=== PATIENT | female | born 1975 | race Hispanic/Latino ===

== ENCOUNTER 2016-12-31 16:19 | Inpatient (IN) | payer BC ==
[~2016-12-31] VITALS: Ht 157.5 cm; Wt 90.0 kg
[~2016-12-31 16:19] MED LIST: CIPROFLOXACIN250 MG PO; PRENATAL CAPLE1 EACH PO
--- NOTE | 2017-01-02 13:20 | NUR ---
01/02/17 1320 Rea Lam 125 PT ARRIVED TO ROOM AWAKE, RESP EVEN AND UNLABORED. DENINES PAIN AND NAUSEA.
--- NOTE | 2017-01-03 09:36 | PR ---
[facility] [address] [facility] [place], [place] [address] Signed PP Progress Notes Datetime Report Generated by CPN: 01/03/2017 09:36 SUBJECTIVE: [id number] Pain: Within normal limits Nausea/Vomiting: Denies Flatus: Yes Vital Signs: [id number] Vital Signs: Reviewed; Within Normal Limits EXAM: [id number] Cardiovascular: Normal Respiratory: Normal Abdomen/Uterus: Abnormal Lochia: Normal Vulva/Perineum: Not Done Breasts: Not Done CVA Tenderness: Not Done Extremities: Normal Incision: Normal Progress: Normal Exam Comments: Abdomen with active BS. Fundus firm, NT @ U-1. UO low H/H 11.5/32.1, WBC 9.6, plat 176k IMPRESSION/PLAN/PROCEDURES: [id number] Impression: Normal progression Other Impression: Poor urine output Other Plans: ambulate, shower, push po fluids Progress Notes: Doing OK other than UO. Signing Physician: Brenda Louise MD CC: *Electronically Signed* 01/03/17 0936 BRENDA LOUISE MD PATIENT NAME: SHAWN ALVES PROGRESS NOTE DATE OF : 77 PHYSICIAN: BRENDA LOUISE MD RPT #: [id number] REPORT IS CONFIDENTIAL AND NOT TO BE RELEASED WITHOUT AUTHORIZATION
--- NOTE | 2017-01-04 11:43 | PR ---
[facility] [address] [facility] [place], [place] [address] Signed PP Progress Notes Datetime Report Generated by CPN: 01/04/2017 11:43 SUBJECTIVE: [id number] Pain: Within normal limits Nausea/Vomiting: Denies Flatus: Yes Bowel Movement: No Vital Signs: [id number] Vital Signs: Reviewed; Within Normal Limits EXAM: [id number] Cardiovascular: Normal Respiratory: Normal Abdomen/Uterus: Normal Lochia: Normal Vulva/Perineum: Normal Breasts: Normal CVA Tenderness: Normal Extremities: Normal Incision: Normal Progress: Normal Exam Comments: Abdomen with active BS. Fundus firm, NT @ U-1. UO low H/H 11.5/32.1, WBC 9.6, plat 176k IMPRESSION/PLAN/PROCEDURES: [id number] Impression: Normal progression Other Impression: Poor urine output Plan: Remove joan; Discharge Other Plans: ambulate, shower, push po fluids Procedures: None Progress Notes: patient doing well with . Signing Physician: Catherine Valero MD CC: *Electronically Signed* 01/04/17 1143 CATHERINE VALERO MD PATIENT NAME: SHAWN ALVES PROGRESS NOTE DATE OF : 77 PHYSICIAN: CATHERINE VALERO MD RPT #: [id number] REPORT IS CONFIDENTIAL AND NOT TO BE RELEASED WITHOUT AUTHORIZATION
--- NOTE | 2017-01-19 08:41 | OR ---
[facility] [address] [place], [place] [address] Signed DATE OF OPERATION: 01/02/2017 SURGEON: Alison Louise MD PAINTER FOREMAN: Dr. Valero. PREOPERATIVE DIAGNOSES: Term , advanced maternal age, gestational diabetes, oligohydramnios, failure to dilate. POSTOPERATIVE DIAGNOSES: Term , advanced maternal age, gestational diabetes, oligohydramnios, failure to dilate, delivered. PROCEDURE: Primary section with low segment transverse uterine incision. ANESTHESIA: Spinal. ESTIMATED BLOOD LOSS: 650 mL. DRAINS: Chau catheter. INDICATIONS AND FINDINGS: The patient is a 41-year-old female, 2, para 0, SAB 1, who was admitted for induction at 39 and 3/7th weeks for term with oligohydramnios complicated by advanced maternal age. She underwent 6 doses of Cytotec, which changed her cervix from closed to fingertip. She then underwent a Cook balloon for 12 hours, which produce no cervical change. She was then begun on IV Pitocin drip again with no cervical change. At that point, it was felt that this was a failed induction and that she needed to proceed with section. She was consented and taken to the operating room where she was delivered a little boy from the ROT position via lower segment transverse uterine incision with Apgars of 8 and 9 and weight of 8 pounds and 1 ounce. There was meconium-stained fluid on entering the uterus. The baby's head was floating above the pelvic brim. The uterus, tubes, ovaries, and placenta, otherwise, appeared normal. She had some initial atony, which responded to IV Pitocin as well as IM Methergine. DESCRIPTION OF PROCEDURE: The patient was prepped and draped in the supine position. A Pfannenstiel skin incision was made and carried down through the fascia. The incision was extended laterally. The inferior and superior fascial flaps were then created. The muscles were bluntly divided and the peritoneum opened bluntly and the incision extended superiorly and inferiorly. Electronically Signed By: ALISON LOUISE MD 01/19/17 0841 PATIENT NAME: SHAWN ALVES OPERATIVE REPORT DATE OF : 77 PHYSICIAN: ALISON LOUISE MD REPORT #: [id number] REPORT IS CONFIDENTIAL AND NOT TO BE RELEASED WITHOUT AUTHORIZATION [facility] [address] [place] [address] Signed The Serjio retractor was placed. The uterine wall was scored and entered at the upper aspect of the peritoneal reflection. The baby was delivered with the above findings and handed out to the pediatric staff in attendance. The placenta was removed manually. The uterus explored with a lap tape showing no remaining fragments. The edges of the incision were identified and the uterus was closed in 2 layers using 0 Monocryl. The first layer was a running locking stitch and a second was then vertical imbricating stitch. Cautery was used to control bleeding points along the incision. The abdomen was then copiously irrigated and inspected and seen to be hemostatic. The retractor was removed and the peritoneum identified. An ACell graft was then laid over the uterine incision to aid in healing. The peritoneum was then closed with a running suture of 3-0 Vicryl. The muscles were brought together with interrupted sutures of 0 Vicryl. Bleeding points were controlled with cautery. This layer was then irrigated and inspected and found to be hemostatic as well. ACell powder was sprinkled over the muscles to aid in healing. The fascia was then closed from each angle to the midline with a running suture of 0 Vicryl. The subcutaneous tissue was irrigated and bleeding points controlled. The subcutaneous tissue was reapproximated with interrupted sutures of 3-0 Vicryl. The skin was closed with joan. All sponge and needle counts were correct. The patient tolerated the procedure well and was taken to the recovery room in good condition. Alison Louise MD PJW/MODL /[id number] cc: Catherine Valero MD Electronically Signed By: ALISON LOUISE MD 01/19/17 0841 PATIENT NAME: SHAWN ALVES OPERATIVE REPORT DATE OF : 77 PHYSICIAN: ALISON LOUISE MD REPORT #: [id number] REPORT IS CONFIDENTIAL AND NOT TO BE RELEASED WITHOUT AUTHORIZATION
== END 2017-01-04 15:10 | disposition home or self-care (01) | DRG 765 ==
LOC: FBC 01-01 00:10
PROVIDERS: ADMIT Obstetrics & Gynecology
PROC: 0UVC7ZZ Restriction of Cervix, Via Natural or Artificial Opening (ICD-10-PCS; 2017-01-02)
PROC: 10D00Z1 Extraction of Products of Conception, Low, Open Approach (ICD-10-PCS; principal; 2017-01-02 12:00)
DX: O61.0 Failed medical induction of labor (principal); O41.03X0 Oligohydramnios, third trimester, not applicable or unspecified; Z3A.39 39 weeks gestation of pregnancy; Z37.0 Single live birth; O24.429 Gestational diabetes mellitus in childbirth, unspecified control
CPT/HCPCS: 01961; 36415; 85027; C1763; J0690; J1170; J1644; J2274; J2405; J2550; J2590; J2765; J3010

== ENCOUNTER 2017-11-03 06:55 | Day surgery (SDC) | payer BC ==
[~2017-11-03] VITALS: Ht 154.9 cm; Wt 77.1 kg
[2017-11-03] MEDS ORDERED: IBUPROFEN600 MG PO (08:55)
[2017-11-03] MEDS ORDERED: OXYCODON-ACETA1 EAC2 PO (08:56)
[2017-11-03] MEDS ORDERED: MAPAP325 MG PO (08:56)
--- NOTE | 2017-11-03 09:11 | NUR ---
[facility]17 [facility] WITH ORAL AIRWAY IN PLACE. 0856 PT REACTIVE. ORAL AIRWAY REMOVED. NO C/O'S.
--- NOTE | 2017-11-03 09:47 | NUR ---
PATIENT RETURNED FROM SURGERY, RATES ABD PAIN 5/10, MILD NAUSEA. X4 SCOPE SITES INTACT WITH STERI-STRIPS AND SMALL AMOUNT OF DRAINAGE. WARM BLANKET GIVEN. PLAN TO GIVE IV NAUSEA MED, PER PATIENT REQUEST.
--- NOTE | 2017-11-03 10:56 | NUR ---
PT IS ASLEEP WHEN ENTERING THE ROOM. IS AT BEDSIDE. CALL LIGHT WITHIN REACH. TOLERATED ICE CHIPS, SIPS OF WATER, AND JELLO. SHE ASKS FOR PAIN PILL. NO OTHER C/O'S AT THIS TIME. WILL REASSESS WITHIN THE HOUR.
--- NOTE | 2017-11-03 11:54 | NUR ---
PT INDICATES THAT SHE WOULD LIKE TO GO HOME. SHE IS EDUCATED ON DC CRITERIA, THE ONLY CRITERIA LEFT TO MEET IS URINATING. SHE IS HELPED UP OOB TO THE BATHROOM WHERE SHE IS ABLE TO VOID 125ML OF DARK YELLOW URINE. SHE IS EDUCATED ON HOW BEST TO DRESS HERSELF AND TO OPEN HER CURTAIN WHEN SHE IS READY SO DC INSTRUCTIONS CAN BE GIVEN.
--- NOTE | 2017-11-03 12:12 | NUR ---
PT HAS MET DC CRITERIA. DC INSTRUCTIONS ARE GIVEN. SHE IS TAKEN TO VEHICLE IN WHEELCHAIR.
--- NOTE | 2017-11-03 20:24 | OR ---
[facility] [address] [place], [place] [address] Signed DATE OF OPERATION: 11/03/2017 SURGEON: Tammi Interiano MD PREOPERATIVE DIAGNOSIS: Symptomatic gallstones. POSTOPERATIVE DIAGNOSIS: Symptomatic gallstones. PROCEDURES PERFORMED: 1. Laparoscopic cholecystectomy with intraoperative cholangiogram. 2. Surgeon-directed fluoroscopy. ANESTHESIA: General endotracheal. Jean German CRNA and local 18 mL of 0.25% Marcaine with epinephrine. INDICATION: This 42-year-old white woman is a patient of Dr. Louise. The patient has had biliary colic type symptoms with right upper abdominal epigastric pain following meals. Of note, she underwent childbirth by in December 2016, her first child after quite a long time of attempting successful gestation. She was noted to have gallstones detected on OB ultrasound performed by Dr. Louise on October 12, 2017 in her office. Additionally, she has a submucosal fibroid 4 cm in size, but also incidental findings of two small gallstones. The gallstones were considered to be symptomatic, though the fibroids of the uterus are not. She was admitted at this time to undergo cholecystectomy. Understands the risks of bleeding, infection, bile duct injury, need for open procedure, and of course failure to cure her symptoms. Understands and she wished to proceed. FINDINGS: The gallbladder was relatively flaccid and chronically inflamed. There was no sign of acute inflammation. The liver had hepatic steatosis with a blunted liver edge. The appendix was visualized as normal. The uterus was not seen. The right colon and stomach appeared normal. Intraoperative cholangiogram was normal. The gallbladder once excised showed at least one gallstone. DESCRIPTION OF PROCEDURE: Electronically Signed By: TAMMI INTERIANO MD 11/03/174 PATIENT NAME: SHAWN LAGUNA OPERATIVE REPORT DATE OF : 77 REPORT #: [id number] PHYSICIAN: TAMMI INTERIANO MD PCP: RANI SALAZAR DC REPORT IS CONFIDENTIAL AND NOT TO BE RELEASED WITHOUT AUTHORIZATION [facility] [address] [place], [place] [address] Signed The patient was brought to the operating room, given a general endotracheal anesthetic. Preoperative antibiotic Ancef was given. Sequential compression device stockings used and heparin subcutaneously administered. The abdomen was prepared with a chlorhexidine solution and draped sterilely. An infraumbilical incision was made and using an open Tootie cannula technique. Pneumoperitoneum was achieved to a level of 14 mmHg of carbon dioxide gas. Intraabdominal inspection was undertaken showing no sign of ascites or carcinomatosis. The liver had mild fatty infiltration. The gallbladder was obscured from view at that point. Three additional trocars were placed in usual configuration in the subxiphoid, right midclavicular, and right anterior axillary line. The gallbladder was elevated cephalad and retracted laterally and using meticulous care blunt and electrocautery dissection was undertaken, dissecting free the cystic duct. A small rent was made in the gallbladder allowing for egress of clear bile, it was quickly suctioned free. Ultimately, the cystic duct was well defined from surrounding tissue and a clip was applied across gallbladder cystic duct junction and a transverse choledochotomy made in the cystic duct. Egress of clear bile was noted from the cystic duct. Using an Mccormick type cholangiocatheter intraoperative cholangiography was undertaken showing free flow of contrast in biliary tree. Prompt emptying into the duodenum and good retrograde filling. The catheter was removed noting the cholangiogram was entirely normal. The cystic duct was triply clipped and divided and the gallbladder was then dissected free in a retrograde fashion using electrocautery. The gallbladder was placed in an endobag and extracted through the epigastric port opened on the back table and found to have at least one gallstone and cholesterolosis of mucosa. Irrigation was undertaken in subhepatic space. Bilious fluid that had spilled was suctioned free. There was no sign of stone or other remaining debris. Gentle manipulation of the right colon allowed for visualization of the appendix, which was normal. The uterus was not visualized. The trocars were then removed under direct visualization showing no sign of bleeding. The infraumbilical fascial incision was reapproximated with interrupted 0 Vicryl suture. All wounds were copiously irrigated with saline solution and skin was closed with interrupted 3-0 Vicryl. Steri-Strips were applied. The patient was ultimately extubated and transferred to recovery room in good condition having suffered no complications. Sponge, needle, and instrument counts were reported as correct x3. Tammi Interiano MD Electronically Signed By: TAMMI INTERIANO MD 11/03/172023 PATIENT NAME: SHAWN LAGUNA OPERATIVE REPORT DATE OF : 77 REPORT #: [id number] PHYSICIAN: TAMMI INTERIANO MD PCP: RANI SALAZAR DC REPORT IS CONFIDENTIAL AND NOT TO BE RELEASED WITHOUT AUTHORIZATION [address] [address] Signed /MODL /[id number] cc: KYA De Dios MD Copies: RANI SALAZAR DC, PATRICIA J MD ~ Electronically Signed By: TAMMI INTERIANO MD 11/03/172023 PATIENT NAME: ALVES JACKSONSHAWN OPERATIVE REPORT DATE OF : 77 REPORT #: [id number] PHYSICIAN: TAMMI INTERIANO MD PCP: RANI SALAZAR DC REPORT IS CONFIDENTIAL AND NOT TO BE RELEASED WITHOUT AUTHORIZATION
== END 2017-11-03 12:10 | disposition home or self-care (01) ==
LOC: DS 06:55 → OPS 06:55
PROVIDERS: Surgery
PROC: BF13YZZ Fluoroscopy of Gallbladder and Bile Ducts using Other Contrast (ICD-10-PCS; 2017-11-03)
PROC: 0FT44ZZ Resection of Gallbladder, Percutaneous Endoscopic Approach (ICD-10-PCS; principal; 2017-11-03 06:45)
DX: K80.10 Calculus of gallbladder with chronic cholecystitis without obstruction (principal); K21.9 Gastro-esophageal reflux disease without esophagitis
CPT/HCPCS: 00790; 74300; J0690; J1100; J1644; J1885; J2250; J2405; J2704; J2765; J3010; J7120; Q9967

== ENCOUNTER → 2019-06-30 | Emergency (ER) | payer SELFPAY ==
[~2019-06-30] VITALS: Ht 154.9 cm; Wt 77.1 kg
[~2019-06-30] MED LIST changes: +IBUPROFEN600 MG PO; +MAPAP325 MG PO; +METHYLPREDNISOLO4 M1 PO; +OXYCODON-ACETA1 EAC2 PO
--- OUTSIDE RECORDS SUMMARY | ~2019-06-30 | XMS | Encounter Summary ---
Demographics + + + | Address | [address] | | | [place] [address] | + + + | Home Phone | | + + + | Preferred Language | Unknown | + + + | Marital Status | | + + + | Hinduism Affiliation | 1041 | + + + | Race | Unknown | + + + | Ethnic Group | Unknown | + + + Author + + + | Author | [facility] | | | and [place] | + + + | Organization | [facility] | | | and [place] | + + + | Address | Unknown | + + + | Phone | Unavailable | + + + Care Team Providers + +------+ + | Care Chemistry Quality Control Analyst Name | Role | Phone | + +------+ + PCP | Unavailable | + +------+ + Encounter Details +--------+ + + + + | Date | Type | Department | Care Team | Description | +--------+ + + + + | 07/18/ | Emergency | LOCATED WITHIN [facility] | Grupo De Souza MD | Threatened | | 2016 | | MEDICAL CENTER | [address] | miscarriage; Vaginal | | | | EMERGENCY CENTER | [place] [address] | spotting | | | | [address] | [phone] | | | | | [place], [place] | | | | | | [address] | | | | | | [phone] | | | +--------+ + + + + Social History + +-------+ +--------+------+ | Tobacco Use | Types | Packs/Day | Years | Date | | | | | Used | | + +-------+ +--------+------+ | Never Assessed | | | | | + +-------+ +--------+------+ + + + | Sex Assigned at | Date Recorded | | | | + + + | Not on file | | + + + + + + + | Job Start Date | Occupation | Industry | + + + + | Not on file | Not on file | Not on file | + + + + + + + + | Travel History | Travel Start | Travel End | + + + + + + | No recent travel history available. | + + documented as of this encounter Plan of Treatment Not on filedocumented as of this encounter Procedures + +--------+ + + + | Procedure Name | Priori | Date/Time | Associated Diagnosis | Comments | | | ty | | | | + +--------+ + + + | US OB TRANSVAGINAL | Routin | 07/19/2015 | | Results for this | | | e | 4:22 PM | | procedure are in the | | | | PDT | | results section. | + +--------+ + + + | CULTURE, URINE | STAT | 07/19/2015 | | Results for this | | | | 3:59 PM | | procedure are in the | | | | PDT | | results section. | + +--------+ + + + | URINALYSIS, REFLEX | Routin | 07/19/2015 | | Results for this | | MICROSCOPIC AND/OR | e | 3:10 PM | | procedure are in the | | CULTURE | | PDT | | results section. | + +--------+ + + + | HCG, SERUM, QUANT | Routin | 07/19/2015 | | Results for this | | | e | 3:10 PM | | procedure are in the | | | | PDT | | results section. | + +--------+ + + + documented in this encounter Results US OB Transvaginal (07/19/2015 4:22 PM PDT) + + | Specimen | + + | | + + + + + | Impressions | Performed At | + + + | 1. Gestational sac within the endometrial cavity without to | | | pole or yolk sac. Estimated gestational age is 10 weeks 6 days. | | | Short-term follow-up ultrasound in 2 weeks would be recommended. 2. | | | Mild free fluid within the pelvis. 3. A 1.5 cm structure adjacent | | | to the left ovary abutting the cervix. This may represent an excluded | | | fibroid or possible displaced right ovary. The right ovary is not | | | visualized. Soft tissue mass is felt less likely. 4. Mild amount of | | | free fluid within the pelvis with internal debris/hemorrhage. | | | | | + + + + + + | Narrative | Performed At | + + + | XIOMY ALVES US OB ENDOVAGINAL HISTORY: Vaginal bleeding | | | and cramping TECHNIQUE: Endovaginal sonographic evaluation the | | | pelvis. COMPARISON: None. FINDINGS: The uterus is anteverted | | | measuring 7.9 x 4.6 x 4.7 cm. Gestational sac seen within the | | | endometrial cavity measuring 15 x 5 x 7 mm consistent with 10 weeks 6 | | | days. No pole or yolk sac visualized. The right ovary is not | | | visualized. Left ovary measures 2.3 x 2.7 x 1.4 cm. Mild free fluid | | | within the pelvis with internal debris. Echogenic structure adjacent | | | to the left ovary adjacent to the cervix measuring 2.7 x 2.2 x 2.6 cm. | | | Mild internal color flow. | | + + + + + | Procedure Note | + + | Donny, Rad Conversion - 09/30/2018 6:31 PM PDT XIOMY GUADARRAMA OB ENDOVAGINAL | | HISTORY:Vaginal bleeding and cramping TECHNIQUE:Endovaginal sonographic evaluation the | | pelvis. COMPARISON:None. FINDINGS:The uterus is anteverted measuring 7.9 x 4.6 x 4.7 cm. | | Gestational sac seen within the endometrial cavity measuring 15 x 5 x 7 mm consistent | | with 10 weeks 6 days. No pole or yolk sac visualized. The right ovary is not | | visualized. Left ovary measures 2.3 x 2.7 x 1.4 cm. Mild free fluid within the pelvis | | with internal debris. Echogenic structure adjacent to the left ovary adjacent to the | | cervix measuring 2.7 x 2.2 x 2.6 cm. Mild internal color flow. IMPRESSION: 1. | | Gestational sac within the endometrial cavity without to pole or yolk sac. | | Estimated gestational age is 10 weeks 6 days. Short-term follow-up ultrasound in 2 weeks | | would be recommended.2. Mild free fluid within the pelvis.3. A 1.5 cm structure | | adjacent to the left ovary abutting the cervix. This may represent an excluded fibroid | | or possible displaced right ovary. The right ovary is not visualized. Soft tissue mass | | is felt less likely.4. Mild amount of free fluid within the pelvis with internal | | debris/hemorrhage. | | | |IMPRESSION: | |1. Gestational sac within the endometrial cavity without to pole or yolk sac. Estima sera gestational age is 10 weeks 6 days. Short-term follow-up ultrasound in 2 weeks would be recommended. | |2. Mild free fluid within the pelvis. | |3. A 1.5 cm structure adjacent to the left ovary abutting the cervix. This may represent a n excluded fibroid or possible displaced right ovary. The right ovary is not visualized. Sof t tissue mass is felt less likely. | |4. Mild amount of free fluid within the pelvis with internal debris/hemorrhage. | | | | | + + Culture, Urine (07/19/2015 3:59 PM PDT) + + | Specimen | + + | | + + + + + | Narrative | Performed At | + + + | Specimen Description CLEAN CATCH URINE CULTURE | EXTERNAL LAB | | <10,000 CFU/ML | | | MIXED GRAM POSITIVE OLGA | | | NO FURTHER WORKUP | | | Testing performed | | | at [facility], [address] [place] [address] | | + + + + +---------+ + + | Performing | Address | City/State/Zipcode | Phone Number | | Organization | | | | + +---------+ + + | EXTERNAL LAB | | | | + +---------+ + + Urinalysis, Reflex Microscopic and/or Culture (07/19/2015 3:10 PM PDT) + + + + + + | Component | Value | Ref Range | Performed | Pathologist | | | | | At | Signature | + + + + + + | Color | YELLOWComment: Testing | | EXTERNAL | | | | performed at [facility];[address] | | LAB | | | | [address];[place] | | | | | | [address] | | | | + + + + + + | Clarity | CLEARComment: Testing | | EXTERNAL | | | | performed at [facility];[address] | | LAB | | | | [address];[place] | | | | | | [address] | | | | + + + + + + | Specific | 1.010Comment: Testing | 1.002 - 1.030 | EXTERNAL | | | [place], | performed at [facility];[address] | | LAB | | | Urine [address];[place] | | | | | | [address] | | | | + + + + + + | Leukocyte | SMALL (A)Comment: | | EXTERNAL | | | Esterase, | Testing performed at | | LAB | | | Urine | [facility];[address] | [address];[place] [address] | | | | + + + + + + | Nitrite, | NEGATIVEComment: Testing | | EXTERNAL | | | Urine | performed at [facility];[address] | | LAB | | | | [address] | | | | | | [address] | | | | + + + + + + | Urobilinoge | NORMALComment: Testing | mg/dL | EXTERNAL | | | n, Urine | performed at [facility];[address] | | LAB | | | | [address] | | | | | | [address] | | | | + + + + + + | Protein, | 30 (A)Comment: Testing | mg/dL | EXTERNAL | | | Urine | performed at [facility];[address] | | LAB | | | | [address] | | | | | | [address] | | | | + + + + + + | pH, Urine | 7.0Comment: Testing | 5.0 - 8.0 | EXTERNAL | | | | performed at [facility];[address] | | LAB | | | | [address] | | | | | | [address] | | | | + + + + + + | Blood, | LARGE (A)Comment: | | EXTERNAL | | | Urine | Testing performed at | | LAB | | | | [facility];[address];[place] [address] | | | | + + + + + + | Ketones | NEGATIVEComment: Testing | mg/dL | EXTERNAL | | | | performed at [facility];[address] | | LAB | | | | [address] | | | | | | [address] | | | | + + + + + + | Bilirubin, | NEGATIVEComment: Testing | | EXTERNAL | | | Urine | performed at [facility];[address] | | LAB | | | | [address] | | | | | | [address] | | | | + + + + + + | Glucose, | NEGATIVEComment: Testing | mg/dL | EXTERNAL | | | Urine | performed at [facility];[address] | | LAB | | | | [address] | | | | | | [address] | | | | + + + + + + | WBC, UA | 6-10Comment: Testing | 0 - 5 /hpf | EXTERNAL | | | | performed at [facility];[address] | | LAB | | | | [address] | | | | | | [address] | | | | + + + + + + | RBC, UA | 16-25Comment: Testing | 0 - 5 /hpf | EXTERNAL | | | | performed at [facility];[address] | | LAB | | | | [address] | | | | | | [address] | | | | + + + + + + | Bacteria, | 1+ (A)Comment: Testing | | EXTERNAL | | | UA | performed at [facility];[address] | | LAB | | | | [address] | | | | | | [address] | | | | + + + + + + | Epithelial | 50-100Comment: Testing | /lpf | EXTERNAL | | | Cells | performed at [facility];[address] | | LAB | | | | [address] | | | | | | [address] | | | | + + + + + + | Mucus, | 1+Comment: Testing | | EXTERNAL | | | Urine | performed at [facility];[address] | | LAB | | | | [address];[place] | | | | | | [address] | | | | + + + + + + + + | Specimen | + + | | + + + +---------+ + + | Performing | Address | City/State/Zipcode | Phone Number | | Organization | | | | + +---------+ + + | EXTERNAL LAB | | | | + +---------+ + + HCG, Serum, Quant (07/19/2015 3:10 PM PDT) + + + + + + | Component | Value | Ref Range | Performed | Pathologist | | | | | At | Signature | + + + + + + | hCG Quant, | 6,934 (H)Comment: | mIU/mL | EXTERNAL | | | Serum | APPROX GESTATIONAL | | LAB | | | | AGE..APPROX HCG RANGE | | | | | | 0.2 - 1 WEEK . . . . . 5 | | | | | | - 501 - 2 WEEKS . . . . | | | | | | . 50 - 5002 - 3 WEEKS . | | | | | | . . . 100 - 62516 - 4 | | | | | | WEEKS . . . . 500 - | | | | | | 295005 - 5 WEEKS . . . . | | | | | | 1000 - 255811 - 6 WEEKS | | | | | | . . . [address] - 6748094 | | | | | | - 8 WEEKS . . . [address]77 | | | | | | - [id number] - 3 MONTHS . | | | | | | . . 45[address] - 127911 | | | | | | Testing performed at | | | | | | [facility] | | | | | | [address];[place] [address] | | | | + + + + + + + + | Specimen | + + | Blood specimen | | (specimen) | + + + +---------+ + + | Performing | Address | City/State/Zipcode | Phone Number | | Organization | | | | + +---------+ + + | EXTERNAL LAB | | | | + +---------+ + + documented in this encounter Visit Diagnoses + + | Diagnosis | + + | Threatened miscarriage Threatened , unspecified as to episode of care | + + | Vaginal spotting Other specified noninflammatory disorder of vagina | + + documented in this encounter"
--- OUTSIDE RECORDS SUMMARY | ~2019-06-30 | XMS | Clinical Summary ---
Demographics + + + | Address | [address] | | | [place] [address] | + + + | Home Phone | | + + + | Preferred Language | Unknown | + + + | Marital Status | | + + + | Samaritan Affiliation | 1041 | + + + | Race | Unknown | + + + | Ethnic Group | Unknown | + + + Author + + + | Author | [facility] (Historical as of | | | 10-02-18) | + + + | Organization | [facility] (Historical as of | | | 10-02-18) | + + + | Address | Unknown | + + + | Phone | Unavailable | + + + Support + + + + + | Name | Relationship | Address | Phone | + + + + + | Narciso,Varghese | ECON | Unknown | | + + + + + | Carla Alves | ECON | Unknown | | + + + + + | Liborio Tomlin | ECON | [address] | | | | | [place] | | | | | [address] | | + + + + + | Aliya Alves | ECON | Unknown | | + + + + + Care Team Providers + +------+ + | Care Drafter Detail Name | Role | Phone | + +------+ + PP | Unavailable | + +------+ + Allergies No Known Allergies Current Medications No known medications Active Problems No known active problems Family History + +------+--------+ + | Relation | Name | Status | Comments | + +------+--------+ + | Father | | Alive | | + +------+--------+ + | Mother | | Alive | | + +------+--------+ + Social History + +-------+ +--------+------+ | Tobacco Use | Types | Packs/Day | Years | Date | | | | | Used | | + +-------+ +--------+------+ | Never Smoker | | | | | + +-------+ +--------+------+ + +---+---+---+ | Smokeless Tobacco: | | | | | Never Used | | | | + +---+---+---+ + + | Tobacco Cessation: Counseling Given: No | + + + + +---------+ + | Alcohol Use | Drinks/We | oz/Week | Comments | | | ek | | | + + +---------+ + | No | 0 | 0.0 | | | | Standard | | | | | drinks or | | | | | | | | | | equivalen | | | | | t | | | + + +---------+ + + + + + | Currently | Estimated Date of Delivery | Comments | + + + + | Yes | | | + + + + + + + | Sex Assigned at | Date Recorded | | | | + + + | Not on file | | + + + Last Filed Vital Signs + + + + | Vital Sign | Reading | Time Taken | + + + + | Blood Pressure | 131/81 | 07/19/2015 5:06 PM PDT | + + + + | Pulse | 77 | 07/19/2015 5:06 PM PDT | + + + + | Temperature | 36.6 C (97.8 F) | 07/19/2015 2:54 PM PDT | + + + + | Respiratory Rate | 16 | 07/19/2015 5:06 PM PDT | + + + + | Oxygen Saturation | 99% | 07/19/2015 5:06 PM PDT | + + + + | Inhaled Oxygen | - | - | | Concentration | | | + + + + | Weight | 74.6 kg (164 lb 7.4 | 07/19/2015 2:54 PM PDT | | | oz) | | + + + + | Height | 180.3 cm (5' 11") | 07/19/2015 1:58 PM PDT | + + + + | Body Mass Index | 22.94 | 07/19/2015 2:54 PM PDT | + + + + Plan of Treatment + + + + + | Health Maintenance | Due Date | Last Done | Comments | + + + + + | Vaccine: | | | | | Dtap/Tdap/Td (1 - | 5 | | | | Tdap) | | | | + + + + + | Cervical Cancer | | | | | Screening (Pap) | 6 | | | + + + + + | Vaccine: Influenza | | | | | (Season Ended) | 0 | | | + + + + + Results Not on filefrom Last 3 Months Insurance +---------+--------+ +------+-------+ + | Payer | Benefi | Subscriber | Type | Phone | Address | | | t Plan | ID | | | | | | / | | | | | | | Group | | | | | +---------+--------+ +------+-------+ + | PREMERA | PREMER | [id number] | | | [address] [address] | | | A BLUE | 0 | | | [place], [place] | | | CARD | | | | [address] | +---------+--------+ +------+-------+ + + +--------+ +--------+ + + | Guarantor Name | Accoun | Relation to | Date | Phone | Billing Address | | | t Type | Patient | of | | | | | | | | | | + +--------+ +--------+ + + | XIOMY ALVES | Person | Self [birth year] Home: | [address] | | | [place] | | 1974 | [phone] | [place] | | | [place] | | [phone] | [address] | + +--------+ +--------+ + +
--- OUTSIDE RECORDS SUMMARY | ~2019-06-30 | XMS | Clinical Summary ---
Demographics + + + | Address | [address] | | | [place] [address] | + + + | Home Phone | | + + + | Preferred Language | Unknown | + + + | Marital Status | | + + + | Voodoo Affiliation | 1041 | + + + | Race | Unknown | + + + | Ethnic Group | Unknown | + + + Author + + + | Author | [facility] | | | and [place] | + + + | Organization | [facility] | | | and [place] | + + + | Address | Unknown | + + + | Phone | Unavailable | + + + Care Team Providers + +------+ + | Care Cable Television Access Coordinator Name | Role | Phone | + +------+ + PCP | Unavailable | + +------+ + Allergies Not on File Medications Not on file Active Problems + + + | | Comments | + + + | Yes | | + + + No additional problems on file Family History + +------+--------+ + | Relation [...] + +-------+ +--------+------+ + + + | | Comments | + + + | Yes | | + + + + + [...] recent travel history available. | + + Last Filed Vital Signs + + + + + | Vital Sign | Reading | Time Taken | Comments | + + + + + | Blood Pressure | 131/81 | 07/19/2015 5:08 PM | | | | | PDT | | + + + + + | Pulse | 77 | 07/19/2015 5:08 PM | | | | | PDT | | + + + + + | Temperature | 36.6 C (97.8 F) | 07/19/2015 5:08 PM | | | | | PDT | | + + + + + | Respiratory Rate | 16 | 07/19/2015 5:08 PM | | | | | PDT | | + + + + + | Oxygen Saturation | - | - | | + + + + + | Inhaled Oxygen | - | - | | | Concentration | | | | + + + + + | Weight | 74.6 kg (164 lb 7.4 | 07/19/2015 5:08 PM | | | | oz) | PDT | | + + + + + | Height | 180.3 cm (5' 11") | 07/19/2015 2:04 PM | | | | | PDT | | + + + + + | Body Mass Index | 22.94 | 07/19/2015 2:04 PM | | | | | PDT | | + + + + + Plan of Treatment + + + + + | Health Maintenance | Due Date | Last Done | Comments | + + + + + | Vaccine: | | | | | Dtap/Tdap/Td (1 - | 7 | | | | Tdap) | | [...]
--- OUTSIDE RECORDS SUMMARY | ~2019-06-30 | XMS | Encounter Summary ---
Demographics + + + | Address | [address] | | | [place] [address] | + + + | Home Phone | | + + + | Preferred Language | Unknown | + + + | Marital Status | | + + + | Lutheran Affiliation | 1041 | + + + | Race | Unknown | + + + | Ethnic Group | Unknown | + + + Author + + + | Author | [facility] | | | and [place] | + + + | Organization | [facility] | | | and [place] | + + + | Address | Unknown | + + + | Phone | Unavailable | + + + Care Team Providers + +------+ + | Care Teacher Of Gifted Students Name | Role | Phone | + +------+ + PCP | Unavailable | + +------+ + Encounter Details +--------+ + + + + | Date | Type | Department | Care Team | Description | +--------+ + + + + | 10/30/ | Emergency | [facility] | Luca Singh, | | | [facility] - | | [facility]ICAL CENTER | [facility] | | | | | [facility]Y [facility]ENTER | [place] [address] | | | 10/31/ | | [address] | [phone] | | | 2013 | | [place], [place] | | | | | | [address] | | | | | | [phone] | | | +--------+ + + + [...] Not on filedocumented as of this encounter Visit Diagnoses Not on filedocumented in this encounter"
--- OUTSIDE RECORDS SUMMARY | ~2019-06-30 | XMS | Encounter Summary ---
Demographics + + + | Address | [address] | | | [place] [address] | + + + | Home Phone | | + + + | Preferred Language | Unknown | + + + | Marital Status | | + + + | Yarsani Affiliation | 1041 | + + + | Race | Unknown | + + + | Ethnic Group | Unknown | + + + Author + + + | Author | [facility] | | | and [place] | + + + | Organization | [facility] | | | and [place] | + + + | Address | Unknown | + + + | Phone | Unavailable | + + + Care Team Providers + +------+ + | Care Field Operator Name | Role | Phone | + +------+ + PCP | Unavailable | + +------+ + Encounter Details +--------+ + + + + | Date | Type | Department | Care Team | Description | +--------+ + + + + | 10/12/ | Hospital | [facility] | Conversion | | | 2012 | Encounter | [facility] | Transaction, | | | | | CLINIC [address] | Provider Unknown | | | | | [address] [place], [place] | [phone] | | | | | [address] | | | | | | [phone] | | | +--------+ + + + [...]
--- OUTSIDE RECORDS SUMMARY | ~2019-06-30 | XMS | Encounter Summary ---
Demographics + + + | Address | [address] | | | [place] [address] | + + + | Home Phone | | + + + | Preferred Language | Unknown | + + + | Marital Status | | + + + | Hinduism Affiliation | 1041 | + + + | Race | Unknown | + + + | Ethnic Group | Unknown | + + + Author + + + | Author | [facility] | | | and [place] | + + + | Organization | [facility] | | | and [place] | + + + | Address | Unknown | + + + | Phone | Unavailable | + + + Care Team Providers + +------+ + | Care General Ii Farmworker Name | Role | Phone | + +------+ + PCP | Unavailable | + +------+ + Encounter Details +--------+ + + + + | Date | Type | Department | Care Team | Description | +--------+ + + + + | 10/22/ | Hospital | [facility] | [facility], | | | 2013 | Encounter | [facility] | Zeus Oliva MD [address] | | | | | [address] | [address] | | | | | [place], [place] | [place] [address] | | | | | [address] | [phone] | | | | | [phone] | | | +--------+ + + + [...] + + documented as of this encounter Progress Notes Kaz Transaction, Provider Unknown - 10/22/2012 2:31 PM PDTFormatting of this note m ight be different from the original. Progress Notes by Claudine Burton RN at 10/22/12 143 Author: Claudine Burton RN Service: (none) Author Type: Registered Nurse Filed: 10/22/12 143 Date of Service: 10/22/121430 Status: Signed Store Leader: Claudine Burton RN (Registered Nurse) Called into OR, relayed message to Dr Pascal that pt has drank a liter of water all day. With the last water intake @ 1200. Pt stated she drank a cup and 1/2 @ that time. Claudine Burton 10/22/2012 2:32 PM docume nted in this encounter Plan of Treatment Not on filedocumented as of this encounter Procedures + +--------+ + + + | Procedure Name | Priori | Date/Time | Associated Diagnosis | Comments | | | ty | | | | + +--------+ + + + | TISSUE REQUEST FOR | Routin | 10/22/2012 | | Results for this | | PATHOLOGY (NON-ORD) | e | 12:00 AM | | procedure are in the | | | | PDT | | results section. 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 There is no | | | immature or malignant component. CLINICAL HISTORY: | | | 10/22/2012 at 1606 H. Pelvic pain. GROSS DESCRIPTION: One | | | specimen is received in one container, labeled with the patient's | | | name: A. Received in formalin designated "right ovarian dermoid", | | | consists of a 3.5 x 2.2 x 1.2 cm ovary. The external surface is pale | | | pink and smooth with one defect that is 3.2 x 1.6 cm. Serial | | | sectioning reveals a pink-white variegated ovarian parenchyma with a | | | 1.7 x 1.5 x 0.9 cm cystic structure that contains a yellow greasy | | | material admixed hair. [employer] Programmer sections are submitted in three | | | cassettes. Cassette Summary: (A1-A2) cystic structure containing | | | greasy material and hair; (A3) uninvolved ovary. MICROSCOPIC | | | EXAMINATION: Histologic sections of all submitted blocks are | | | examined by light microscopy. These findings, together with the gross | | | examination, support the pathologic diagnosis. This report has | | | been prepared using a voice recognition system. The report was | | | reviewed for accuracy, however, sound-alike word errors, addition | | | and/or deletions may occur. If there is any question about this | | | report please contact the originating pathologist. Jamey | | | Lynne Bird MD Electronically signed Oct 25, 2012 2:04:28PM | | + + + + +---------+ + + | Performing | Address | [facility] | Phone Number | | Organization | | | | + +---------+ + + | EXTERNAL LAB | | | | + +---------+ + + documented in this encounter Visit Diagnoses Not on filedocumented in this encounter
== END ==
LOC: ED 15:25
DX: T78.1XXA Other adverse food reactions, not elsewhere classified, initial encounter (principal); Z88.1 Allergy status to other antibiotic agents; Z88.5 Allergy status to narcotic agent; Z79.899 Other long term (current) drug therapy
CPT/HCPCS: 99283

== ENCOUNTER 2020-03-23 08:25 | Inpatient (IN) | payer OTHER ==
[~2020-03-23] VITALS: Ht 154.9 cm; Wt 93.0 kg
[2020-03-26] MEDS ORDERED: VITAFOL-OB+DHA1 EACH PO (05:53)
--- NOTE | 2020-03-26 08:35 | NUR ---
03/26/20 0835 Claudine Shaw 0816 PT ARRIVED IN PACU WIDE AWAKE WITH NO C/O'S. FATHER HOLDING BABY AT BEDSIDE. 0830 FBC RN AT BEDSIDE HELPING MOTHER BREAST FEED.
--- NOTE | 2020-03-27 08:09 | PR ---
[facility] [address] [place], [place] [address] Signed PP Progress Notes Datetime Report Generated by CPN: 03/27/2020 08:09 SUBJECTIVE: [id number] Pain: Within Normal Limits Nausea/Vomiting: Denies Flatus: Yes Vital Signs: [id number] Vital Signs: Reviewed; Within Normal Limits Notable Details: poor po intake EXAM: Ongoing Cardiovascular: Normal Respiratory: Normal Abdomen/Uterus: Abnormal Lochia: Normal Vulva/Perineum: Not Done Breasts: Not Done CVA Tenderness: Not Done Extremities: Normal Incision: Normal Progress: Normal Exam Comments: Abdomen with active BS. Fundus firm, NT @ U-2. H/H 12.2/35.6, WBC 8.3, plat 175k IMPRESSION/PLAN/PROCEDURES: [id number] Impression: Normal Progression Other Impression: poor po intake Other Plans: increase po intake, ambulate Procedures: None Progress Notes: Doing well other than poor po intake. Encourage po intake so IV fluids can be stopped. Will increase ambulation. Signing Physician: Brenda Louise MD Copies: ~ *Electronically Signed* 03/27/20808 BRENDA LOUISE MD PATIENT NAME: SHAWN LAGUNA PROGRESS NOTE DATE OF : 77 PHYSICIAN: BRENDA LOUISE MD RPT #: [id number] REPORT IS CONFIDENTIAL AND NOT TO BE RELEASED WITHOUT AUTHORIZATION
--- NOTE | 2020-03-27 11:58 | OR ---
[facility] [address] [place], [place] [address] Signed DATE OF OPERATION: 03/26/2020 SURGEON: Alison Louise MD AFLOAT CRYPTOLOGIC MANAGER: Severiano Miller DO. PREOPERATIVE DIAGNOSES: Term , previous section, AMA, gestational diabetes. POSTOPERATIVE DIAGNOSES: Term , previous section, AMA, gestational diabetes, delivered. PROCEDURE: Repeat section with low segment transverse uterine incision and lysis of adhesions. ANESTHESIA: Spinal. ESTIMATED BLOOD LOSS: 600 mL. DRAINS: Chau catheter. INDICATIONS AND FINDINGS: The patient is a 45-year-old female, 4, para 1, SAB 2, who was admitted at 39 and 1/7th weeks for repeat section. At the time of surgery, her little girl was delivered via lower segment transverse uterine incision from the ROT position with Apgars of 9 and 9 and weight of 7 pounds 14 ounces. There were omental adhesions to the anterior peritoneum. The uterus, tubes, ovaries, and placenta otherwise were normal. DESCRIPTION OF PROCEDURE: The patient was prepped and draped in the supine position. A repeat Pfannenstiel skin incision was made and carried down through the fascia. The incision was extended laterally. The inferior and superior fascial flaps were then created. There was a bleeding point on the right rectus and this was controlled with a kseoyv-uu-plrba of 0 Vicryl. The muscles were sharply divided in the midline and the peritoneum opened and Electronically Signed By: ALISON LOUISE MD 03/27/20 1158 PATIENT NAME: SHAWN LAGUNA OPERATIVE REPORT DATE OF : 77 REPORT #: [id number] PHYSICIAN: ALISON LOUISE MD PCP: RANI SALAZAR DC REPORT IS CONFIDENTIAL AND NOT TO BE RELEASED WITHOUT AUTHORIZATION [facility] [address] [place], [place] [address] Signed incised. The omental adhesions were in the lower portion of the abdomen. These were grasped with Andree clamps, divided, and free tied with 2-0 Vicryl. This allowed the omentum to be freed and could be pushed up over the uterus. The Serjio retractor was then placed. The uterine incision was then made at the upper aspect of the peritoneal reflection. The baby was delivered to the above findings and handed off to the pediatric staff in attendance. The placenta was removed manually and the uterus explored with a lap tape assuring no remaining fragments. The edges of the incision were identified and the uterus was closed in 2 layers using 0 Monocryl. The first layer was a running locking stitch and the 2nd was a vertical imbricating stitch. Additional kjtina-ua-dfapl was required near the left mid portion for control of bleeding. The abdomen was then copiously irrigated, inspected and was hemostatic. The retractor was removed and the peritoneum identified. An ACell graft was laid over the lower segment to aid in healing. The peritoneum was then closed with a running suture of 3-0 Vicryl. There was some tearing on the patient's left side and an additional lonrmz-sk-mwmcf was placed in this area with closure. The muscles were brought together in the midline with interrupted sutures of 0 Vicryl. Bleeding points were controlled with cautery. This layer was irrigated and inspected and hemostasis was noted. ACell powder was sprinkled over the muscles to aid in healing. The fascia was then closed from each angle to the midline with a running suture of 0 Vicryl. The subcu was irrigated and bleeding points were controlled with cautery. The deep space was closed with interrupted sutures of 3-0 Vicryl. The skin was closed with joan. All sponge and needle counts were correct. She tolerated procedure well and was taken to the recovery room in good condition. Alison Louise MD PJW/MODL /[id number] cc: Severiano Miller DO Copies: SEVERIANO MILLER DO ~ Electronically Signed By: ALISON LOUISE MD 03/27/20 1158 PATIENT NAME: SHAWN LAGUNA OPERATIVE REPORT DATE OF : 77 REPORT #: [id number] PHYSICIAN: ALISON LOUISE MD PCP: RANI SALAZAR DC REPORT IS CONFIDENTIAL AND NOT TO BE RELEASED WITHOUT AUTHORIZATION
--- NOTE | 2020-03-28 08:22 | PR ---
[facility] [address] [place], [place] [address] Signed PP Progress Notes Datetime Report Generated by CPN: 03/28/2020 08:22 SUBJECTIVE: [id number] Pain: Within Normal Limits Nausea/Vomiting: Denies Flatus: Yes Vital Signs: [id number] Vital Signs: Reviewed; Within Normal Limits Notable Details: poor po intake EXAM: Ongoing Cardiovascular: Not Done Respiratory: Not Done Abdomen/Uterus: Normal Lochia: Normal Vulva/Perineum: Not Done Breasts: Not Done CVA Tenderness: Not Done Extremities: Normal Incision: Normal Progress: Normal Exam Comments: Abdomen with active BS. Fundus firm, NT @ U-1. IMPRESSION/PLAN/PROCEDURES: [id number] Impression: Normal Progression Other Impression: poor po intake Plan: Remove [place]; Discharge Other Plans: increase po intake, ambulate Procedures: None Progress Notes: Doing well. She is ready for D/C. Signing Physician: Brenda Louise MD Copies: ~ *Electronically Signed* 03/28/20821 BRENDA LOUISE MD PATIENT NAME: SHAWN LAGUNA PROGRESS NOTE DATE OF : 77 PHYSICIAN: BRENDA LOUISE MD RPT #: [id number] REPORT IS CONFIDENTIAL AND NOT TO BE RELEASED WITHOUT AUTHORIZATION
== END 2020-03-28 10:30 | disposition home or self-care (01) | DRG 788 ==
LOC: FBC 03-26 05:00
PROVIDERS: ADMIT Obstetrics & Gynecology; ATTEND Obstetrics & Gynecology
PROC: 10D00Z1 Extraction of Products of Conception, Low, Open Approach (ICD-10-PCS; principal; 2020-03-26 06:45)
DX: O34.211 Maternal care for low transverse scar from previous cesarean delivery (principal); N85.8 Other specified noninflammatory disorders of uterus; Z3A.39 39 weeks gestation of pregnancy; Z37.0 Single live birth; O32.2XX0 Maternal care for transverse and oblique lie, not applicable or unspecified; O69.81X0 Labor and delivery complicated by cord around neck, without compression, not applicable or unspecified; O24.420 Gestational diabetes mellitus in childbirth, diet controlled; O99.214 Obesity complicating childbirth; E66.9 Obesity, unspecified; Z87.440 Personal history of urinary (tract) infections
CPT/HCPCS: 01961; 36415; 85027; A9270; J0690; J1170; J2001; J2274; J2300; J2370; J2405; J2550; J2590; J3010; J7121